=== PATIENT | female | born 1945 | race Caucasian/White ===

== ENCOUNTER → 2018-09-13 | Outpatient (CLI) | payer MEDICARE, OTHER ==
[~2018-09-13] MED LIST: ALBU90OI6 INH; ALBU90OI61 INH; AMLO5 PO; ATEN25 PO; ENAL20 PO; ENOX100I SQ; HYDCHL50 PO; LEVSOD100 PO; LEVSOD125 PO; LEVSOD75 PO; MULT50FEL PO; NAPR220 PO; POTCHL20ER PO; Pantoprazole So40 MG PO; SIMV10 PO; SYNTHROID112 MCG PO; Simvastatin20 MG PO; TOLT4 PO; VIT PO; WARF2 PO; WARF5 PO; WARF7.5 PO
[2018-09-13 14:24] LABS: BASOPHILS ABSOLUTE AUTO 0.06 K/mm3 (0.00-0.23); BASOPHILS PERCENT AUTO 1 % (0-2); EOSINOPHILS ABSOLUTE AUTO 0.44 K/mm3 (0.00-0.68); EOSINOPHILS PERCENT AUTO 7 % (0-6); Hematocrit 36.3 % (33.0-51.0); IMMATURE GRAN ABSOLUTE AUTO 0.02 K/mm3 (0.00-0.10); IMMATURE GRAN PERCENT AUTO 0 % (0-1); LYMPHOCYTES ABSOLUTE AUTO 1.33 K/mm3 (0.84-5.20); LYMPHOCYTES PERCENT AUTO 20 % (21-46); MONOCYTES ABSOLUTE AUTO 0.57 K/mm3 (0.16-1.47); MONOCYTES PERCENT AUTO 9 % (4-13); Mean Corpuscular HGB 30.7 pg (26.0-34.0); Mean Corpuscular HGB Conc 33.1 g/dL (31.5-36.5); Mean Corpuscular Volume 93 fL (80-100); NEUTROPHILS PERCENT AUTO 63 % (41-73); Platelet Count 218 K/mm3 (150-400); RDW Coefficient Variation 13.6 % (11.7-14.2); RDW Standard Deviation 46.2 fL (35.1-46.3); Red Blood Cell Count 3.91 M/mm3 (3.80-5.20); White Blood Cell Count 6.52 K/mm3 (4.00-11.30)
[2018-09-13 14:32] LABS: Bun/Creatinine Ratio 25.2 (12.0-20.0); Calcium, Blood 9.2 mg/dL (8.5-10.1); Creatinine, Blood 1.27 mg/dL (0.40-1.00); Potassium, Blood 4.1 mmol/L (3.5-5.5)
== END | disposition home or self-care (01) ==
LOC: LAB EV 14:20 → LAB SHORT 14:20
PROVIDERS: Physician Assistant Surgical
DX: R55 Syncope and collapse (principal)
CPT/HCPCS: 80048; 85025

== ENCOUNTER 2018-11-02 20:41 | Emergency (ER) | payer MEDICARE, OTHER ==
[~2018-11-02] VITALS: Ht 152.4 cm; Wt 74.4 kg
[~2018-11-02 20:41] MED LIST changes: -LEVSOD100 PO; -LEVSOD75 PO; -POTCHL20ER PO; -Pantoprazole So40 MG PO; -Simvastatin20 MG PO
[2018-11-02] MEDS ORDERED: Pantoprazole So40 MG PO (21:01)
[2018-11-02] MEDS ORDERED: Simvastatin20 MG PO (21:01)
[2018-11-02] MEDS ORDERED: LEVSOD100 PO (21:01)
[2018-11-02] MEDS ORDERED: LEVSOD75 PO (21:02)
[2018-11-02 21:10] LABS: BASOPHILS ABSOLUTE AUTO 0.06 K/mm3 (0.00-0.23); BASOPHILS PERCENT AUTO 1 % (0-2); EOSINOPHILS ABSOLUTE AUTO 0.11 K/mm3 (0.00-0.68); EOSINOPHILS PERCENT AUTO 2 % (0-6); Hematocrit 35.3 % (33.0-51.0); Hemoglobin 11.5 g/dL (11.5-16.0); IMMATURE GRAN ABSOLUTE AUTO 0.02 K/mm3 (0.00-0.10); IMMATURE GRAN PERCENT AUTO 0 % (0-1); LYMPHOCYTES ABSOLUTE AUTO 1.43 K/mm3 (0.84-5.20); LYMPHOCYTES PERCENT AUTO 22 % (21-46); MONOCYTES ABSOLUTE AUTO 0.55 K/mm3 (0.16-1.47); MONOCYTES PERCENT AUTO 9 % (4-13); Mean Corpuscular HGB 31.1 pg (26.0-34.0); Mean Corpuscular HGB Conc 32.6 g/dL (31.5-36.5); Mean Corpuscular Volume 95 fL (80-100); Mean Platelet Volume 11.6 fL (9.1-12.4); NEUTROPHILS ABSOLUTE AUTO 4.31 K/mm3 (1.96-9.15); NEUTROPHILS PERCENT AUTO 67 % (41-73); Platelet Count 198 K/mm3 (150-400); RDW Standard Deviation 46.1 fL (35.1-46.3); White Blood Cell Count 6.48 K/mm3 (4.00-11.30)
[2018-11-02 21:28] LABS: Alanine Aminotransfer (ALT/SGP 23 U/L (12-78); Albumin, Blood 3.5 g/dL (3.4-5.0); Albumin/Globulin Ratio 1.1 (0.8-1.8); Alk Phos 67 U/L (50-136); Anion Gap 8 mmol/L (6-16); Aspartate Aminotrans (AST/SGOT 19 U/L (12-37); Bilirubin, Total 0.2 mg/dL (0.1-1.0); Blood Urea Nitrogen 30 mg/dL (8-24); Bun/Creatinine Ratio 22.4 (12.0-20.0); CO2, Blood 29 mmol/L (21-32); Calcium, Blood 8.5 mg/dL (8.5-10.1); Chloride, Blood 104 mmol/L (98-108); Creatinine, Blood 1.34 mg/dL (0.40-1.00); Globulin, Blood 3.2 g/dL (2.2-4.0); Glomerular Filtration Rate 41 (60-); Glucose, Blood 123 mg/dL (70-99); Potassium, Blood 3.4 mmol/L (3.5-5.5); Sodium, Blood 141 mmol/L (136-145); Total Protein, Blood 6.7 g/dL (6.4-8.2); Troponin I <0.015 ng/mL (0.000-0.040)
[2018-11-02] MEDS ORDERED: POTCHL20ER PO (22:02)
== END 2018-11-02 22:24 | disposition home or self-care (01) ==
LOC: ER 20:41
PROVIDERS: Emergency Medicine
DX: R55 Syncope and collapse (principal); E87.6 Hypokalemia; Z88.5 Allergy status to narcotic agent; Z88.8 Allergy status to other drugs, medicaments and biological substances; Z79.899 Other long term (current) drug therapy; Z79.01 Long term (current) use of anticoagulants; E03.9 Hypothyroidism, unspecified; E78.5 Hyperlipidemia, unspecified; I10 Essential (primary) hypertension
CPT/HCPCS: 36415; 71046; 80053; 82947; 83880; 84484; 85025; 93005; 93010; 99284-25

== ENCOUNTER → 2019-02-17 | Outpatient (CLI) | payer MEDICARE, OTHER ==
[~2019-02-17] MED LIST changes: +LEVSOD100 PO; +LEVSOD75 PO; +POTCHL20ER PO; +Pantoprazole So40 MG PO; +Simvastatin20 MG PO
[2019-02-17 14:17] LABS: Protein, Urine Random 20.1 mg/dL (0.0-11.9)
== END | disposition home or self-care (01) ==
LOC: LAB SHORT 12:48 → LAB 12:48
PROVIDERS: Internal Medicine
DX: N18.3 Chronic kidney disease, stage 3 (moderate) (principal)
CPT/HCPCS: 82570; 84156

== ENCOUNTER → 2019-02-19 | Outpatient (CLI) | payer MEDICARE, OTHER ==
[2019-02-19 14:21] LABS: Protein, Urine Quantitative 10.1 mg/dL (0.0-11.9)
[2019-02-22 10:06] LABS: DOPAMINE, URINE 100 ug/L (Undefined); METANEPHRINE, UR 103 ug/L (Undefined)
== END | disposition home or self-care (01) ==
LOC: LAB SHORT 09:00 → LAB 09:00
PROVIDERS: Internal Medicine
DX: N18.3 Chronic kidney disease, stage 3 (moderate) (principal)
CPT/HCPCS: 81050; 84156

== ENCOUNTER 2020-05-07 20:32 | Inpatient (IN) | payer MEDICARE, OTHER ==
[~2020-05-07] VITALS: Ht 167.6 cm; Wt 71.3 kg
[2020-05-07] MEDS ORDERED: ATOR20 (20:46)
[2020-05-07] MEDS ORDERED: TRAZ50 (20:47)
[2020-05-07] MEDS ORDERED: Prozac40 MG (20:47)
[2020-05-07] MEDS ORDERED: XARELTO20 MG (20:47)
[2020-05-07 21:13] LABS: BASOPHILS ABSOLUTE AUTO 0.04 K/mm3 (0.00-0.23); BASOPHILS PERCENT AUTO 1 % (0-2); EOSINOPHILS ABSOLUTE AUTO 0.03 K/mm3 (0.00-0.68); EOSINOPHILS PERCENT AUTO 0 % (0-6); Hematocrit 35.8 % (33.0-51.0); Hemoglobin 11.4 g/dL (11.5-16.0); IMMATURE GRAN ABSOLUTE AUTO 0.02 K/mm3 (0.00-0.10); IMMATURE GRAN PERCENT AUTO 0 % (0-1); LYMPHOCYTES ABSOLUTE AUTO 0.91 K/mm3 (0.84-5.20); LYMPHOCYTES PERCENT AUTO 12 % (21-46); MONOCYTES PERCENT AUTO 8 % (4-13); Mean Corpuscular HGB 30.5 pg (26.0-34.0); Mean Corpuscular HGB Conc 31.8 g/dL (31.5-36.5); Mean Corpuscular Volume 96 fL (80-100); Mean Platelet Volume 11.5 fL (9.1-12.4); NEUTROPHILS ABSOLUTE AUTO 6.12 K/mm3 (1.96-9.15); NEUTROPHILS PERCENT AUTO 79 % (41-73); Platelet Count 184 K/mm3 (150-400); RDW Coefficient Variation 13.2 % (11.7-14.2); RDW Standard Deviation 46.3 fL (35.1-46.3); Red Blood Cell Count 3.74 M/mm3 (3.80-5.20); White Blood Cell Count 7.72 K/mm3 (4.00-11.30)
[2020-05-07 21:31] LABS: Alanine Aminotransfer (ALT/SGP 33 U/L (12-78); Albumin, Blood 3.6 g/dL (3.4-5.0); Albumin/Globulin Ratio 1.2 (0.8-1.8); Alk Phos 60 U/L (50-136); Anion Gap 7 mmol/L (6-16); Aspartate Aminotrans (AST/SGOT 28 U/L (12-37); Bilirubin, Total 0.6 mg/dL (0.1-1.0); Blood Urea Nitrogen 41 mg/dL (8-24); Bun/Creatinine Ratio 28.9 (12.0-20.0); CO2, Blood 27 mmol/L (21-32); Calcium, Blood 8.8 mg/dL (8.5-10.1); Chloride, Blood 101 mmol/L (98-108); Creatinine, Blood 1.42 mg/dL (0.40-1.00); Glomerular Filtration Rate 38 (60-); Glucose, Blood 202 mg/dL (70-99); Potassium, Blood 3.8 mmol/L (3.5-5.5); Sodium, Blood 135 mmol/L (136-145); Total Protein, Blood 6.6 g/dL (6.4-8.2); Troponin I <0.015 ng/mL (0.000-0.040)
--- NOTE | 2020-05-08 03:46 | NUR ---
PT ARRIVED TO ROOM 229 AT 0300. A/O X4. DENIES CHEST PAIN/PRESSURE AND SOB. PT ORIENTED TO ROOM. CALL LIGHT IN PLACE.
[2020-05-08 04:29] LABS: BASOPHILS ABSOLUTE AUTO 0.02 K/mm3 (0.00-0.23); BASOPHILS PERCENT AUTO 0 % (0-2); EOSINOPHILS PERCENT AUTO 0 % (0-6); Hematocrit 30.9 % (33.0-51.0); Hemoglobin 9.9 g/dL (11.5-16.0); IMMATURE GRAN ABSOLUTE AUTO 0.03 K/mm3 (0.00-0.10); IMMATURE GRAN PERCENT AUTO 0 % (0-1); LYMPHOCYTES ABSOLUTE AUTO 0.62 K/mm3 (0.84-5.20); LYMPHOCYTES PERCENT AUTO 7 % (21-46); MONOCYTES ABSOLUTE AUTO 0.61 K/mm3 (0.16-1.47); MONOCYTES PERCENT AUTO 7 % (4-13); Mean Corpuscular HGB 30.2 pg (26.0-34.0); Mean Corpuscular Volume 94 fL (80-100); Mean Platelet Volume 11.6 fL (9.1-12.4); NEUTROPHILS ABSOLUTE AUTO 7.93 K/mm3 (1.96-9.15); NEUTROPHILS PERCENT AUTO 86 % (41-73); Platelet Count 166 K/mm3 (150-400); RDW Coefficient Variation 13.2 % (11.7-14.2); RDW Standard Deviation 45.4 fL (35.1-46.3); Red Blood Cell Count 3.28 M/mm3 (3.80-5.20); White Blood Cell Count 9.21 K/mm3 (4.00-11.30)
--- NOTE | 2020-05-08 04:33 | NUR ---
SHIFT SUMMARY PT A/O X4. PT ADMITTED TO ROOM 229 AT 0300 FOR SYNCOPE. PT DENIES DIZZINESS WHILE SITTING IN BED, HOWEVER PER PT WHEN SHE TRIES TO STAND SHE HAS BEEN DIZZY. BP STABLE WHEN SITTING IN BED. CALL LIGHT IN PLACE. PT INSTRUCTED TO USE CALL LIGHT WHEN SHE NEEDS TO VOID. WCTM. TELE IN PLACE.
[2020-05-08 04:54] LABS: Albumin, Blood 3.2 g/dL (3.4-5.0); Albumin/Globulin Ratio 1.2 (0.8-1.8); Bilirubin, Total 0.6 mg/dL (0.1-1.0); Bun/Creatinine Ratio 31.9 (12.0-20.0); Calcium, Blood 8.6 mg/dL (8.5-10.1); Creatinine, Blood 1.16 mg/dL (0.40-1.00); Globulin, Blood 2.7 g/dL (2.2-4.0); Potassium, Blood 3.3 mmol/L (3.5-5.5); Total Protein, Blood 5.9 g/dL (6.4-8.2)
[2020-05-08 07:16] LABS: Source, Urine Clean Catch
[2020-05-08 07:19] LABS: Appearance, Urine Clear (Clear); Bilirubin, Urine Neg (Neg); Blood, Urine 1+ (Neg); Color, Urine Yellow (P-Yellow); Glucose Qualitative, Urine Neg (Neg); Ketones, Urine Neg (Neg); Leukocyte Esterase, Urine 1+ (Neg); Nitrite, Urine Neg (Neg); Protein, Urine 1+ (Neg); Urobilinogen, Urine NORM (Normal)
[2020-05-08 07:40] LABS: Bacteria Rare /hpf; Red Blood Cells, Urine 0-2 /hpf (0-2); Squamous Epithelial Cells Rare /hpf (Few)
[2020-05-09 04:32] LABS: BASOPHILS ABSOLUTE AUTO 0.02 K/mm3 (0.00-0.23); BASOPHILS PERCENT AUTO 0 % (0-2); EOSINOPHILS ABSOLUTE AUTO 0.09 K/mm3 (0.00-0.68); EOSINOPHILS PERCENT AUTO 2 % (0-6); Hematocrit 27.3 % (33.0-51.0); Hemoglobin 8.7 g/dL (11.5-16.0); IMMATURE GRAN ABSOLUTE AUTO 0.01 K/mm3 (0.00-0.10); IMMATURE GRAN PERCENT AUTO 0 % (0-1); LYMPHOCYTES ABSOLUTE AUTO 1.34 K/mm3 (0.84-5.20); LYMPHOCYTES PERCENT AUTO 23 % (21-46); MONOCYTES ABSOLUTE AUTO 0.62 K/mm3 (0.16-1.47); MONOCYTES PERCENT AUTO 11 % (4-13); Mean Corpuscular HGB 30.4 pg (26.0-34.0); Mean Corpuscular HGB Conc 31.9 g/dL (31.5-36.5); Mean Corpuscular Volume 96 fL (80-100); Mean Platelet Volume 11.2 fL (9.1-12.4); NEUTROPHILS ABSOLUTE AUTO 3.76 K/mm3 (1.96-9.15); NEUTROPHILS PERCENT AUTO 65 % (41-73); Platelet Count 134 K/mm3 (150-400); RDW Coefficient Variation 13.3 % (11.7-14.2); RDW Standard Deviation 46.9 fL (35.1-46.3); Red Blood Cell Count 2.86 M/mm3 (3.80-5.20); White Blood Cell Count 5.84 K/mm3 (4.00-11.30)
[2020-05-09 04:57] LABS: Albumin, Blood 2.7 g/dL (3.4-5.0); Anion Gap 3 mmol/L (6-16); Blood Urea Nitrogen 28 mg/dL (8-24); Bun/Creatinine Ratio 23.7 (12.0-20.0); CO2, Blood 31 mmol/L (21-32); Calcium, Blood 8.2 mg/dL (8.5-10.1); Chloride, Blood 107 mmol/L (98-108); Creatinine, Blood 1.18 mg/dL (0.40-1.00); Glomerular Filtration Rate 47 (60-); Glucose, Blood 92 mg/dL (70-99); Magnesium, Blood 1.7 mg/dL (1.6-2.4); Phosphorus, Blood 2.3 mg/dL (2.5-4.9); Potassium, Blood 3.7 mmol/L (3.5-5.5); Sodium, Blood 141 mmol/L (136-145)
--- NOTE | 2020-05-09 05:37 | NUR ---
SHIFT SUMMARY PT A/O X4, SBA TO BEDSIDE COMMODE. PT REPORTS THAT DIZZINESS WHEN STANDING HAS GOTTEN MUCH BETTER. ORTHOSTATIC BP'S THIS SHIFT SHOW MUCH IMPROVEMENT. PT DOES HAVE LARGE HEMATOMA TO L BUTTOCKS. ATTENS IN PLACE FOR OCCASIONAL INCONTINENCE. NO ACUTE CHANGES OVERNIGHT.
--- NOTE | 2020-05-09 08:29 | NUR ---
ORTHOSTATIC VITALS 0725 LYING 113/68 HR 82, SITTING 119/71 HR 92, STANDING 93/64 HR 104 WHEN PT ASKED IF SHE WAS DIZZY SHE STATES "NOT BAD". AMBULATED TO BATHROOM FOLLOWING VS SBA-DENIES WORSENING DIZZINESS. TELE SR @ 84
--- NOTE | 2020-05-09 12:48 | NUR ---
DICHARGE PT DISCHARGED HOME FROM UNIT AT APROX 1240. PT GIVEN WRITTEN AND VERBAL DISCHARGE INSTRUCTIONS AND VERBALIZED UNDERSTANDING. IV REMOVED, NEW PERSCRIPTIONS CALLED TO [facility] ROSS IN [place]. WHEELCHAIR TO CAR
== END 2020-05-09 12:44 | disposition home or self-care (01) | DRG 312 ==
LOC: ER 20:32 → SURS 20:33 → ER 20:33 → SURS 05-08 03:14
PROVIDERS: Internal Medicine Gastroenterology; Physician Assistant; ADMIT Internal Medicine
DX: I95.2 Hypotension due to drugs (principal); N17.9 Acute kidney failure, unspecified; T46.5X5A Adverse effect of other antihypertensive drugs, initial encounter; D63.1 Anemia in chronic kidney disease; R55 Syncope and collapse; N18.3 Chronic kidney disease, stage 3 (moderate); I12.9 Hypertensive chronic kidney disease with stage 1 through stage 4 chronic kidney disease, or unspecified chronic kidney disease; E86.0 Dehydration; E03.9 Hypothyroidism, unspecified; E78.5 Hyperlipidemia, unspecified; J44.9 Chronic obstructive pulmonary disease, unspecified; N39.41 Urge incontinence; K52.9 Noninfective gastroenteritis and colitis, unspecified; S30.0XXA Contusion of lower back and pelvis, initial encounter; Z86.718 Personal history of other venous thrombosis and embolism; Z79.01 Long term (current) use of anticoagulants; S80.01XA Contusion of right knee, initial encounter
CPT/HCPCS: 36415; 70450; 71045; 73562-RT; 80053; 80069; 81001; 82533; 82947; 83036; 83735; 83880; 84443; 84484; 85025; 87086; 93005; 93010; 96360; 96361; 99285-25; A9270; A9270-GY; G0378; J7030; J7120

== ENCOUNTER → 2023-05-17 | Outpatient (CLI) | payer MEDICARE ==
[~2023-05-17] MED LIST changes: +ATOR20; +ATOR20 PO; +EUTHYROX88 MCG PO; +HYDROCHLOROTH12.5 MG PO; +Prozac40 MG; +Prozac40 MG PO; +TOLT2 PO; +TRAZ50; +Vitamin D2000 UNIT PO; +XARELTO20 MG; +XARELTO20 MG PO; +ZESTRIL40 M1 PO
[2023-05-17 18:30] LABS: Albumin, Blood 3.4 g/dL (3.4-5.0); Albumin/Globulin Ratio 1.1 (0.8-1.8); Bilirubin, Total 0.5 mg/dL (0.1-1.0); Bun/Creatinine Ratio 27.1 (12.0-20.0); Calcium, Blood 9.1 mg/dL (8.5-10.1); Creatinine, Blood 1.18 mg/dL (0.40-1.00); Potassium, Blood 4.1 mmol/L (3.5-5.5); Thyroid Stimulating Hormone 8.69 uIU/mL (0.360-4.800); Total Protein, Blood 6.4 g/dL (6.4-8.2)
== END ==
LOC: LAB SHORT 15:00 → LAB 15:00
PROVIDERS: Physician Assistant
DX: E03.9 Hypothyroidism, unspecified (principal); I10 Essential (primary) hypertension
CPT/HCPCS: 80053; 84443

== ENCOUNTER 2024-07-31 07:01 | Day surgery (SDC) | payer MEDICARE, OTHER ==
[~2024-07-31] VITALS: Ht 152.4 cm; Wt 74.8 kg
[2024-07-31] VITALS (24 sets, daily range): BP systolic 117–214; BP diastolic 68–166
[~2024-07-31 07:01] MED LIST changes: +ALEN70 PO; +NS 500 ML IV SCH
[2024-07-31] MEDS ORDERED: Benzocaine Oral Spray 0.5ML UD ONE (07:19)
[2024-07-31] MEDS ORDERED: propofoL 40 ML IV ONE (07:20)
--- NOTE | 2024-07-31 07:47 | NUR ---
Ambulatory in Day Surgery History, Chart, Medications and Allergies reviewed before start of procedure.Lungs clear T/O to Auscultation. Patient confirms NPO status and agrees with scheduled surgery. Patient states colon prep results clear. Patient States Post-Procedure ride home has been arranged.
--- NOTE | 2024-07-31 07:57 | NUR ---
07/31/24 0757 Lise Espinoza CONFIRMED AND REVIEWED H&P, MEDCICATIONS, ALLERGIES, MEDICAL HISTORY, RESPIRATORY HISTORY, VITAL SIGNS, 3-LEAD EKG, CONSENTS, AND PHYSICIAN ORDERS. PATIENT CONFIRMS NPO STATUS AND AGREES WITH SCHEDULED PROCEDURE. MONITOR INTACT WITH CONTINUOUS PULSE OXIMETRY, CAPNOGRAPHY, 3-LEAD EKG, INTERMITTENT BP. SUPPLEMENTAL O2 TO BE TITRATED THROUGHOUT PROCEDURE TO MAINTAIN O2 SATURATION ABOVE 90%. PATIENT DETERMINED TO BE ASA APPROPRIATE FOR PROPOFOL SEDATION PRIOR TO START OF PROCEDURE BY DR. LUI. MALLAMPATI CLASS 2 AIRWAY: COMPLETE VISUALIZATION OF THE UVULA.
[2024-07-31 08:00] LABS: Hematocrit 27.1 % (33.0-51.0); Hemoglobin 8.3 g/dL (11.5-16.0)
--- NOTE | 2024-07-31 09:09 | NUR ---
Discharge instructions reviewed with patient. Patient verbalizes understanding. Copy given to patient to take home. Patient States Post-Procedure ride home has been arranged. Discharged via wheelchair to private car for ride home.
== END 2024-07-31 09:05 | disposition home or self-care (01) ==
LOC: ORSCMMR 07:01 → ORD 08:00 → ORSCMMR 08:00
PROVIDERS: Internal Medicine Gastroenterology
PROC: 0DB48ZX Excision of Esophagogastric Junction, Via Natural or Artificial Opening Endoscopic, Diagnostic (ICD-10-PCS; principal; 2024-07-31 08:00)
PROC: 0DB98ZX Excision of Duodenum, Via Natural or Artificial Opening Endoscopic, Diagnostic (ICD-10-PCS; principal; 2024-07-31 08:00)
PROC: 0DBK8ZX Excision of Ascending Colon, Via Natural or Artificial Opening Endoscopic, Diagnostic (ICD-10-PCS; principal; 2024-07-31 08:00)
PROC: 0DB78ZX Excision of Stomach, Pylorus, Via Natural or Artificial Opening Endoscopic, Diagnostic (ICD-10-PCS; principal; 2024-07-31 08:00)
DX: D50.0 Iron deficiency anemia secondary to blood loss (chronic) (principal); K92.1 Melena; K21.9 Gastro-esophageal reflux disease without esophagitis; K29.70 Gastritis, unspecified, without bleeding; D12.2 Benign neoplasm of ascending colon; Z86.0101 Personal history of adenomatous and serrated colon polyps; R11.0 Nausea; Z86.718 Personal history of other venous thrombosis and embolism; Z79.01 Long term (current) use of anticoagulants; I10 Essential (primary) hypertension; E03.9 Hypothyroidism, unspecified; F32.A Depression, unspecified; E78.00 Pure hypercholesterolemia, unspecified; Z79.899 Other long term (current) drug therapy
CPT/HCPCS: 85014; 85018; 88305; 88342; A9270; J2704; J7040

== ENCOUNTER → 2025-02-25 | Outpatient (CLI) | payer MEDICARE, OTHER ==
[~2025-02-25] MED LIST changes: -NS 500 ML IV SCH
[2025-02-25 15:00] LABS: IMMATURE RETIC FRACTION 17.9 % (2.3-16.0); RETIC HGB EQUIVALENT 33.7 pg (28.20-36.60); RETICULOCYTE ABSOLUTE 0.0634 M/mm3 (0.0200-0.1100); RETICULOCYTE COUNT PERCENT 2.24 % (0.50-2.50)
[2025-02-25 15:45] LABS: Percent Saturation 65.5 % (15.0-50.0)
== END ==
LOC: LAB SHORT 13:48 → LAB 13:48
PROVIDERS: Internal Medicine Hematology & Oncology
DX: E61.1 Iron deficiency (principal)
CPT/HCPCS: 82728; 83540; 83550; 85045

== ENCOUNTER 2025-03-06 21:53 | Inpatient (IN) | payer MEDICARE, OTHER ==
[~2025-03-06] VITALS: Ht 162.6 cm; Wt 74.2 kg
[2025-03-06 22:12] LABS: BASOPHILS ABSOLUTE AUTO 0.02 K/mm3 (0.00-0.23); BASOPHILS PERCENT AUTO 0 % (0-2); EOSINOPHILS ABSOLUTE AUTO 0.02 K/mm3 (0.00-0.68); EOSINOPHILS PERCENT AUTO 0 % (0-6); Hematocrit 26.9 % (33.0-51.0); Hemoglobin 8.8 g/dL (11.5-16.0); IMMATURE GRAN ABSOLUTE AUTO 0.07 K/mm3 (0.00-0.10); IMMATURE GRAN PERCENT AUTO 1 % (0-1); LYMPHOCYTES ABSOLUTE AUTO 0.81 K/mm3 (0.84-5.20); LYMPHOCYTES PERCENT AUTO 8 % (21-46); MONOCYTES PERCENT AUTO 7 % (4-13); Mean Corpuscular HGB 32.6 pg (26.0-34.0); Mean Corpuscular HGB Conc 32.7 g/dL (31.5-36.5); Mean Corpuscular Volume 100 fL (80-100); Mean Platelet Volume 11.1 fL (9.1-12.4); NEUTROPHILS ABSOLUTE AUTO 9.12 K/mm3 (1.96-9.15); NEUTROPHILS PERCENT AUTO 84 % (41-73); Platelet Count 239 K/mm3 (150-400); RDW Coefficient Variation 13.3 % (11.7-14.2); RDW Standard Deviation 48.4 fL (35.1-46.3); White Blood Cell Count 10.84 K/mm3 (4.00-11.30)
[2025-03-06 22:28] LABS: Albumin/Globulin Ratio 1.2 (0.8-1.8); Bilirubin, Total 0.2 mg/dL (0.1-1.0); Bun/Creatinine Ratio 24.1 (12.0-20.0); Calcium, Blood 9.1 mg/dL (8.5-10.1); Creatinine, Blood 1.08 mg/dL (0.40-1.00); Globulin, Blood 2.6 g/dL (2.2-4.0); Potassium, Blood 3.9 mmol/L (3.5-5.5); Total Protein, Blood 5.6 g/dL (6.4-8.2)
[2025-03-06 23:08] LABS: International Normalized Ratio 1.23
[2025-03-06] MEDS ORDERED: NS 1,000 ML IV SCH (23:15)
[2025-03-06] MEDS ORDERED: Acetaminophen 500 MG Tab PO ONE (23:50)
[2025-03-06] MEDS ORDERED: Methocarbamol 500 MG Tab PO ONE (23:50)
[2025-03-07] VITALS (9 sets, daily range): BP systolic 102–159; BP diastolic 50–135
[2025-03-07] MEDS ORDERED: Ondansetron HCl 2 MG / ML 2ML Vial IV PRN (02:25)
[2025-03-07] MEDS ORDERED: NS 1,000 ML IV SCH (02:25)
[2025-03-07 02:44] LABS: Source, Urine Clean Catch
[2025-03-07] MEDS ORDERED: LEVSOD100 PO (03:04)
[2025-03-07] MEDS ORDERED: TOLTERODINE TART2 M1 PO (03:15)
--- NOTE | 2025-03-07 03:15 | NUR ---
PT HERE VIA [facility] FROM ER. PT TRANSFERRED TO MEDICAL FLOOR BED. CALL LIGHT WITHIN REACH. BED ALARM ON. BED IN LOW POSITION.
[2025-03-07] MEDS ORDERED: OMEP20ER PO (03:16)
[2025-03-07 03:22] LABS: Bilirubin, Urine Neg (Neg); Blood, Urine 4+ (Neg); Glucose Qualitative, Urine Neg (Neg); Ketones, Urine Neg (Neg); Leukocyte Esterase, Urine 1+ (Neg); Nitrite, Urine Neg (Neg); Protein, Urine 1+ (Neg); Urobilinogen, Urine NORM (Normal)
--- NOTE | 2025-03-07 03:42 | NUR ---
NEW T-ORDERS RECEIVED FROM THE ON-CALL HOSPITALIST DR. VILLARREAL: - FENTANYL IV 25-50MCG Q4HRS PRN - TYLENOL PO 650MG Q6HRS PRN. ENTERED TO [employer], SEE EMAR.
[2025-03-07] MEDS ORDERED: FentaNYL Citrate 50 MCG/ML 2 ML Injection IV PRN (03:45)
[2025-03-07] MEDS ORDERED: Acetaminophen 325 MG TABLET PO PRN (03:45)
[2025-03-07 03:49] LABS: Appearance, Urine Clear (Clear); Color, Urine Yellow (P-Yellow)
[2025-03-07 03:50] LABS: Amorphous Light (0-Heavy); Bacteria Mod /hpf; Red Blood Cells, Urine 0-2 /hpf (0-2); Squamous Epithelial Cells Mod /hpf (Few)
--- NOTE | 2025-03-07 03:51 | NUR ---
SHIFT SUMMARY/ ADMISSION TO MEDICAL FLOOR @0315 REPORT REVEIVED FROM THE ED NURSE XIANG. PT ARRIVED TO THE MEDICAL FLOOR IN A GURNEY @0315. PT WAS TRANSFERRED TO THE HOSPITAL BED USING SLIDER SHEET AND THREE STAFF. VANNESA SHI COMPLETING THE ADMISSION ASSESSMENT, SKIN CHECK WITH THIS VENTURE CAPITALIST. PT BROUGHT ALL HER BELONINGS WITH HER. BED ALARM FOR SAFETY. BED AT THE LOWEST POSITION, CALL LIGHT W/I REACH. PT EDUCATED AND ORIENTED TO THE HOSPITAL ROOM, FALL PRECAUTIONS AND THE CALL LIGHT.
[2025-03-07 07:10] LABS: BASOPHILS ABSOLUTE AUTO 0.01 K/mm3 (0.00-0.23); BASOPHILS PERCENT AUTO 0 % (0-2); EOSINOPHILS PERCENT AUTO 0 % (0-6); Hematocrit 22.8 % (33.0-51.0); Hemoglobin 7.3 g/dL (11.5-16.0); IMMATURE GRAN ABSOLUTE AUTO 0.03 K/mm3 (0.00-0.10); IMMATURE GRAN PERCENT AUTO 0 % (0-1); LYMPHOCYTES ABSOLUTE AUTO 0.62 K/mm3 (0.84-5.20); LYMPHOCYTES PERCENT AUTO 6 % (21-46); MONOCYTES ABSOLUTE AUTO 0.84 K/mm3 (0.16-1.47); MONOCYTES PERCENT AUTO 9 % (4-13); Mean Corpuscular HGB 32.2 pg (26.0-34.0); Mean Corpuscular Volume 100 fL (80-100); Mean Platelet Volume 10.7 fL (9.1-12.4); NEUTROPHILS ABSOLUTE AUTO 8.26 K/mm3 (1.96-9.15); NEUTROPHILS PERCENT AUTO 85 % (41-73); Platelet Count 181 K/mm3 (150-400); RDW Coefficient Variation 13.4 % (11.7-14.2); RDW Standard Deviation 49.1 fL (35.1-46.3); Red Blood Cell Count 2.27 M/mm3 (3.80-5.20); White Blood Cell Count 9.76 K/mm3 (4.00-11.30)
[2025-03-07] MEDS ORDERED: Levothyroxine Sodium 0.1 MG Tab PO SCH (07:14)
[2025-03-07] MEDS ORDERED: Omeprazole 20 MG CapCR PO SCH (07:15)
[2025-03-07] MEDS ORDERED: Trospium Chloride 20 MG Tab PO SCH (07:22)
[2025-03-07] MEDS ORDERED: Albuterol HFA200 ACT/6.7 GM INH INH PRN (07:25)
[2025-03-07 07:41] LABS: Albumin, Blood 2.8 g/dL (3.4-5.0); Albumin/Globulin Ratio 1.3 (0.8-1.8); Bilirubin, Total 0.3 mg/dL (0.1-1.0); Bun/Creatinine Ratio 25.1 (12.0-20.0); Calcium, Blood 9.1 mg/dL (8.5-10.1); Globulin, Blood 2.2 g/dL (2.2-4.0); Potassium, Blood 3.7 mmol/L (3.5-5.5)
[2025-03-07] MEDS ORDERED: Potassium Chloride 20 MEQ TabCR PO SCH (09:00)
[2025-03-07] MEDS ORDERED: FLUoxetine HCL 20 MG CAP PO SCH (09:00)
[2025-03-07] MEDS ORDERED: Lisinopril 20 MG Tab PO SCH (09:00)
[2025-03-07] MEDS ORDERED: CefTRIAXone Sodium 1,000 MG in NS 100 ML IV SCH (09:00)
[2025-03-07] MEDS ORDERED: NS 250 ML IV PRN (10:55)
--- NOTE | 2025-03-07 13:15 | NUR ---
NOTE TOOK ORTHOSTATIC VITALS, PT REPORTED "DIZZINESS WHEN STANDING," REPORTED TO DR. MCKINNEY. PT WORKED WITH PHYSICAL THERAPY REPORTED "ABLE TO BEAR WEIGHT, ENCOURAGE PT UP IN CHAIR FOR MEALS, PT DECLINED FURTHER ASSESS DUE TO PAIN." DR. MCKINNEY ORDERING DIFFERENT PAIN MANAGEMENT REGIMEN. CT COMPLETED. CALLED FOR CONSULT TO ORTHOPEDIC SURGEON, DR. WAY WHO REPORTED "STOPPING XARELTRO IS A GOOD IDEA TILL HEMATOMA IS STABILIZED, PT LIKELY IS NOT SURG CANADIDATE DUE TO NO ACTIVE BLEED PER CT." REPORTED DR. WAY CONVO TO DR. MCKINNEY. XARELTRO D/C. DR. MCKINNEY ORDERED CONT. PULSE OX DUE TO PT DESAT WHEN STANDING, RECOVERS QUICKLY WHEN LYING DOWN. PT ON ROOM AIR
[2025-03-07] MEDS ORDERED: OxyCODONE HCL 5 MG TAB PO PRN (13:30)
[2025-03-07 13:43] LABS: Hematocrit 22.7 % (33.0-51.0); Hemoglobin 7.3 g/dL (11.5-16.0)
--- NOTE | 2025-03-07 16:12 | NUR ---
NOTE PROFESSOR OF BIOCHEMISTRY REPORTED 3 SEC RUN OF SVT, LEFT VOICE MESSAGE FOR DR. MCKINNEY. PT "ASYMPTOMATIC."
[2025-03-07] MEDS ORDERED: Rivaroxaban 10 MG Tab PO SCH (18:00)
--- NOTE | 2025-03-07 18:36 | NUR ---
SHIFT SUMMARY PT A&OX4. PT ADMITTED DUE TO SYNCOPE. PT REPORTS NO CHEST PAIN, DISCOMFORT, SOB REPORTED DECREASE IN HGB TO DR. MCKINNEY, NO NEW ORDERS AT THIS TIME. CONT PULSE OX IN PLACE., SPO2 94%. CT COMPLETE. NEW PROVIDER CONSULT CALLED. PT REPORTS LOWER BACK PAIN, PAIN MANAGED PER EMAR. PT STARTED ON OXI FOR PAIN. PT ON TELE. PT ON ROOM AIR. TELE REPORTED A 3 SEC RUN OF SVT, PT REPORTS ASYMPTOMATIC. DR. MCKINNEY NOTIFIED, NO NEW ORDERS ADDED. PT REMAINS ON TELE. PT REPORTED NAUSEA EARLIER, RECEIVED ZOFRAN. PT DIET ADVANCED FROM NPO TO REGULAR. PT ON BED REST, PT IN BED, BED IN LOWEST POSITION, CALL LIGHT IN REACH. BED ALARM ON.
[2025-03-07] MEDS ORDERED: Atorvastatin 10 MG Tab PO SCH (21:00)
[2025-03-08] VITALS (11 sets, daily range): BP systolic 104–172; BP diastolic 56–96
--- NOTE | 2025-03-08 05:54 | NUR ---
SHIFT SUMMARY PT SLEPT INTERMITTENTLY DURING THE NIGHT. MEDICATED FOR LOW BACK PAIN PER EMAR. LARGE BRUISE REMAINS TO R GLUTEAL AREA. PT WITH SCD'S ON, BUT REQUESTING TO HAVE THEM REMOVED AT VARIOUS TIMES DURING THE NIGHT. SHORT BREAKS PROVIDED FROM SCD'S, BUT PT ENCOURAGED TO KEEP THEM ON SECONDARY TO HOLDING OF BLOOD THINNERS AND HX OF DVT. PT VERBALIZES UNDERSTANDING. PUREWICK DRAINING ALEXANDRA COLORED URINE. PT DENIES FEELING DIZZY OR LIGHTHEADED WHILE LYING IN BED. NO ATTEMPTS MADE TO GET PT OOB TONIGHT. PT WITH CONTINUOUS PULSE OX ON, DESATTED TO MID 80'S DURING THE EVENING WHEN PT SLEEPING- 2L NC PLACED, THEN WEANED TO 1LNC. O2 SATS >92. BED IN LOWEST POSITION, CALL LIGHT WITHIN REACH, SIDERAILS UP X3.
[2025-03-08 06:27] LABS: BASOPHILS ABSOLUTE AUTO 0.03 K/mm3 (0.00-0.23); BASOPHILS PERCENT AUTO 0 % (0-2); EOSINOPHILS ABSOLUTE AUTO 0.11 K/mm3 (0.00-0.68); EOSINOPHILS PERCENT AUTO 1 % (0-6); Hematocrit 21.2 % (33.0-51.0); Hemoglobin 6.6 g/dL (11.5-16.0); IMMATURE GRAN ABSOLUTE AUTO 0.04 K/mm3 (0.00-0.10); IMMATURE GRAN PERCENT AUTO 1 % (0-1); LYMPHOCYTES ABSOLUTE AUTO 0.87 K/mm3 (0.84-5.20); LYMPHOCYTES PERCENT AUTO 11 % (21-46); MONOCYTES PERCENT AUTO 13 % (4-13); Mean Corpuscular HGB 32.2 pg (26.0-34.0); Mean Corpuscular HGB Conc 31.1 g/dL (31.5-36.5); Mean Corpuscular Volume 103 fL (80-100); Mean Platelet Volume 11.5 fL (9.1-12.4); NEUTROPHILS ABSOLUTE AUTO 6.08 K/mm3 (1.96-9.15); NEUTROPHILS PERCENT AUTO 74 % (41-73); Platelet Count 163 K/mm3 (150-400); RDW Coefficient Variation 13.9 % (11.7-14.2); RDW Standard Deviation 52.5 fL (35.1-46.3); Red Blood Cell Count 2.05 M/mm3 (3.80-5.20); White Blood Cell Count 8.23 K/mm3 (4.00-11.30)
[2025-03-08 06:55] LABS: Bun/Creatinine Ratio 20.9 (12.0-20.0); Calcium, Blood 8.9 mg/dL (8.5-10.1); Creatinine, Blood 1.29 mg/dL (0.40-1.00); Potassium, Blood 3.8 mmol/L (3.5-5.5)
--- NOTE | 2025-03-08 08:06 | NUR ---
NOTE CALLED DR. MCKINNEY, REPORTED HBG DROP. THIS RN REPORTED CLINICAL TRIALS DATA COORDINATOR TELE REPORTS ON PT. 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 PT REPORTED ASYMPTOMATIC." PT REMAINS ON TELE. REPORTED GFR DECREASE. DR. MCKINNEY REPORTED "WILL GO OVER BLOOD CONSENT SHORTLY."
[2025-03-08 09:13] LABS: Hematocrit 21.5 % (33.0-51.0); Hemoglobin 6.9 g/dL (11.5-16.0)
[2025-03-08] MEDS ORDERED: NS 500 ML IV SCH (10:55)
--- NOTE | 2025-03-08 11:49 | NUR ---
NOTE PT HGB 6.6 THIS AM, DR. SARMIENTO ORDERED RECHECK LAB, HGB IS 6.9. DR. SARMIENTO ORDERED ONE UNIT OF PRBC. TYPE AND SCREEN COMPLETE. BLOOD CONSENT SIGNED AND DISCUSSED BY DR. SARMIENTO. GERHARD RN VERIFIED BLOOD. EDUCATED PT OF S/S OF BLOOD INFUSIION REACTION. PT REPORTS "UNDERSTANDING OF S/S OF TRANSFUSION REACTION." VITALS TAKEN PRE INFUSION. NEW IV PLACED AND FLUSHES ADEQUATE. BP IS 114/66 TEMP IS 98.2, PULSE 81. SATS AT 100ML/HR. LUNGS CLEAR. BLOOD STARTED INFUSING AT 1145 AT 75ML/HR. PT IN BED, BED IN LOWEST POSITION, CALL LIGHT IN REACH. THIS RN IN ROOM.
[2025-03-08 17:13] LABS: Hematocrit 25.9 % (33.0-51.0); Hemoglobin 8.3 g/dL (11.5-16.0)
--- NOTE | 2025-03-08 19:36 | NUR ---
SHIFT SUMMARY PT A&OX4. PT ADMITTED DUE TO SYNCOPE. PT REPORTS SOME PAIN, PAIN MANAGED PER EMAR. PT GOT ONE UNIT OF BLOOD TODAY, VSS. NO SIGN OF REACTION. HGB RECHECK WAS 8.3. PT ON TELE, NO TELE REPORTS NOTED. PT STOOD UP TWICE WITH THIS RN. PT REPORTED "DIZZINESS" CALLED DR. MCKINNEY DUE TO PT WANTING STOOL SOFTNER, AWAITING ORDERS. PT HAS CONT PULSE OX IN PLACE. PT DESAT TO 87%, ON 1L OF O2 VIA N/C AND SUSTAINING 92% SPO2. PT IN BED. BED IN LOWEST POSITION. CALL LIGHT IN REACH.
[2025-03-09 00:37] VITALS: BP 175/93
[2025-03-09 00:52] LABS: Hematocrit 26.1 % (33.0-51.0); Hemoglobin 8.6 g/dL (11.5-16.0)
[2025-03-09 04:13] VITALS: BP 164/81
--- NOTE | 2025-03-09 04:14 | NUR ---
SHIFT SUMMARY PATIENT IS ALERT AND ORIENTED X3 WITH FORGETFULNESS. PATIENT HAS HAD NO ACUTE EVENTS THIS SHIFT. VITAL SIGNS REVIEWED. PATIENT HAS REPORTED PAIN IN LOWER BACK THIS SHIFT. MEDICATED PER EMAR. PATIENT HAS NO COMPLAINTS OF NAUSEA, SOB, OR VOMITTING THIS SHIFT. PATIENT IS ON CONT PULSE OX AND SATTING ABOVE [address] SHIFT. PUREWICK IN PLACE. BED IN LOCKED AND LOWEST POSITION. CALL LIGHT IN PLACE.
[2025-03-09 07:34] VITALS: BP 182/90
[2025-03-09 09:24] LABS: BASOPHILS ABSOLUTE AUTO 0.03 K/mm3 (0.00-0.23); BASOPHILS PERCENT AUTO 0 % (0-2); EOSINOPHILS ABSOLUTE AUTO 0.29 K/mm3 (0.00-0.68); EOSINOPHILS PERCENT AUTO 3 % (0-6); Hematocrit 26.2 % (33.0-51.0); Hemoglobin 8.5 g/dL (11.5-16.0); IMMATURE GRAN ABSOLUTE AUTO 0.07 K/mm3 (0.00-0.10); IMMATURE GRAN PERCENT AUTO 1 % (0-1); LYMPHOCYTES ABSOLUTE AUTO 0.85 K/mm3 (0.84-5.20); LYMPHOCYTES PERCENT AUTO 10 % (21-46); MONOCYTES ABSOLUTE AUTO 0.99 K/mm3 (0.16-1.47); MONOCYTES PERCENT AUTO 11 % (4-13); Mean Corpuscular HGB 32.7 pg (26.0-34.0); Mean Corpuscular HGB Conc 32.4 g/dL (31.5-36.5); Mean Corpuscular Volume 101 fL (80-100); Mean Platelet Volume 11.6 fL (9.1-12.4); NEUTROPHILS ABSOLUTE AUTO 6.45 K/mm3 (1.96-9.15); NEUTROPHILS PERCENT AUTO 74 % (41-73); Platelet Count 149 K/mm3 (150-400); RDW Standard Deviation 55.1 fL (35.1-46.3); White Blood Cell Count 8.68 K/mm3 (4.00-11.30)
[2025-03-09 09:59] LABS: Albumin, Blood 2.8 g/dL (3.4-5.0); Bilirubin, Total 0.5 mg/dL (0.1-1.0); Calcium, Blood 8.9 mg/dL (8.5-10.1); Creatinine, Blood 1.16 mg/dL (0.40-1.00); Globulin, Blood 2.8 g/dL (2.2-4.0); Total Protein, Blood 5.6 g/dL (6.4-8.2)
[2025-03-09 10:38] VITALS: BP 151/79
[2025-03-09 14:47] VITALS: BP 141/90
[2025-03-09] MEDS ORDERED: Acetaminophen325 M1 PO (16:35)
--- NOTE | 2025-03-09 17:12 | NUR ---
DISCHARGE SUMMARY PT DISCHARGED HOME WITH HOME HEALTH. NO NEW RX, PT INSTRUCTED TO STOP XARELTO AT THIS TIME AND FOLLOW UP WITH PCP AND ORTHO FOR HEMATOMA. IV REMOVED - SITE APPEARS WNL. TELE REMOVED/CLEANED AND SENT BACK TO PCU. PT TAKEN HOME BY DAUGHTER IN PRIVATE VEHICLE. DAUGHTERS PRESENT WITH PT AT TIME DISCHARGE PACKET REVIEWED.
== END 2025-03-09 16:46 | disposition home health service (06) | DRG 552 ==
LOC: ER 21:53 → MEDS 21:54 → ERHOLD 21:54 → MEDS 03-07 03:20
PROVIDERS: Internal Medicine; Student in an Organized Health Care Education/Training Program; ADMIT Internal Medicine
PROC: 30233N1 Transfusion of Nonautologous Red Blood Cells into Peripheral Vein, Percutaneous Approach (ICD-10-PCS; principal; 2025-03-07)
PROC: 0HQ0XZZ Repair Scalp Skin, External Approach (ICD-10-PCS; 2025-03-07)
DX: S32.019A Unspecified fracture of first lumbar vertebra, initial encounter for closed fracture (principal); D62 Acute posthemorrhagic anemia; N39.0 Urinary tract infection, site not specified; S01.01XA Laceration without foreign body of scalp, initial encounter; S30.0XXA Contusion of lower back and pelvis, initial encounter; E78.5 Hyperlipidemia, unspecified; E03.9 Hypothyroidism, unspecified; J44.9 Chronic obstructive pulmonary disease, unspecified; Z86.718 Personal history of other venous thrombosis and embolism; Z79.01 Long term (current) use of anticoagulants; Z90.89 Acquired absence of other organs; Z90.49 Acquired absence of other specified parts of digestive tract; Z90.710 Acquired absence of both cervix and uterus; Z98.890 Other specified postprocedural states; Z96.651 Presence of right artificial knee joint; G89.29 Other chronic pain; M54.50 Low back pain, unspecified; Y93.01 Activity, walking, marching and hiking; Y92.090 Kitchen in other non-institutional residence as the place of occurrence of the external cause; R55 Syncope and collapse; W18.30XA Fall on same level, unspecified, initial encounter; I12.9 Hypertensive chronic kidney disease with stage 1 through stage 4 chronic kidney disease, or unspecified chronic kidney disease; I25.10 Atherosclerotic heart disease of native coronary artery without angina pectoris; K21.9 Gastro-esophageal reflux disease without esophagitis; F41.3 Other mixed anxiety disorders; E11.22 Type 2 diabetes mellitus with diabetic chronic kidney disease; N18.30 Chronic kidney disease, stage 3 unspecified; D69.6 Thrombocytopenia, unspecified; M43.8X5 Other specified deforming dorsopathies, thoracolumbar region
CPT/HCPCS: 36415; 36430; 70450; 72125; 72128; 72131; 74177; 80048; 80053; 81001; 83880; 84484; 85014; 85018; 85025; 85610; 85730; 86850; 86900; 86901; 86923; 87086; 93005; 93010; 94762; 96360; 96361; 96374; 96375; 96376; 97110; 97116; 97162; 97165; 97530; 97535; 99285-25; A9270; G0378; J0696; J2405; J3010; J7030; J7040; J7050; P9016; Q9967